=== PATIENT | male | born 2000 | race American Indian/Alaskan Native ===

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

== ENCOUNTER 2023-07-27 08:04 | Day surgery (SDC) | payer OTHER ==
--- NOTE | 2023-07-26 13:59 | NUR ---
PHON CALL TO PT'S MOTHER LEFT MESSAGE X 2 TO THIS NUMBER [phone]
[~2023-07-27] VITALS: Ht 175.3 cm; Wt 113.6 kg
[~2023-07-27 08:04] MED LIST: IBLOOD GLUCOSE TEST STRIP 1 EA TEST VI PRN; LACTATED RINGER'S 1,000 ML IV SCH; LIDOCAINE HCL 1% 5 ML SDV INJ ONE; MAPAP325 MG PO
[2023-07-27 08:23] VITALS: BP 121/59
[2023-07-27] MEDS ORDERED: ALLERGY REL1 MG/1 ML PO (08:28)
[2023-07-27] MEDS ORDERED: LIDOCAINE HCL 2% 5 ML SDV ONE (09:59)
[2023-07-27] MEDS ORDERED: propofoL 200 MG/20 ML VIAL ONE (09:59)
[2023-07-27] MEDS ORDERED: fentaNYL citrate 100 MCG/2 ML VIAL ONE (09:59)
[2023-07-27] MEDS ORDERED: DEXAMETHASONE SOD PHOS 4 MG/ML VIAL ONE (09:59)
[2023-07-27] MEDS ORDERED: ondansetron HCL 4 MG/2 ML VIAL ONE (09:59)
[2023-07-27] MEDS ORDERED: IBLOOD GLUCOSE TEST STRIP 1 EA TEST VI PRN (10:30)
[2023-07-27] MEDS ORDERED: droPERidol 5 MG/2 ML VIAL IV PRN (10:30)
[2023-07-27] MEDS ORDERED: ondansetron HCL 4 MG/2 ML VIAL IV PRN (10:30)
[2023-07-27] MEDS ORDERED: fentaNYL citrate 50 MCG/ML SDV IV PRN (10:30)
[2023-07-27] MEDS ORDERED: NALOXONE HCL 0.4 MG SYR IV PRN (10:30)
[2023-07-27] MEDS ORDERED: PROCHLORPERAZINE EDISYLATE 10 MG/2 ML VIAL IV PRN (10:30)
--- NOTE | 2023-07-27 11:07 | NUR ---
07/27/23 1107 Jacqueline Wilson 1100: PATIENT ARRIVED IN PACU AWAKE AND TEARFUL. HE IS ASKING FOR WATER. PATIENT IS REPOSITIONED IN BED AND HOB IS ELEVATED TO 90. SIPS OF WATER TAKEN AND HE TOLERATES THAT WELL. PATIENT RESTS QUIETLY WITH HIS EYES CLOSED WHEN UNSTIMULATED. PATIENT NOT ON OXYGEN ON ARRIVAL TO PACU AND HIS OXYGEN SATURATION IS 88% ON RA. OXYGEN IS PLACED ON 2L VIA NC.
[2023-07-27 11:35] VITALS: BP 108/53
--- NOTE | 2023-07-27 11:37 | NUR ---
ICED WATER AND CALL LIGHT GIVEN. MOTHER AT PATIENT'S BEDSIDE. PATIENT IS DRINKING WATER AND TOLERATING THAT WELL.
--- NOTE | 2023-07-27 12:10 | NUR ---
CALL LIGHT ANSWERED. PT REPORTS NEED TO VOID. PT ASSISTED TO STANDING POSITION. PT AMBULATED TO RESTROOM DOWN CASTILLO WITH RN SUPERVISION. PT WAS ABLE O VOID 375ML OF CLR, YELLOW URINE. PT AMBULATED BACK TO ROOM WITH NURSE SUPERVISION. PT SITTING ON EOB WITH MOTHER AND PERSONAL BELONGINGS AT SIDE. MOTHER HELPING PT DRESS.
[2023-07-27] MEDS ORDERED: dexmedeTOMIDine HCl 200 MCG/2 ML VIAL ONE (12:17)
[2023-07-27 12:40] VITALS: BP 122/68
--- NOTE | 2023-07-27 12:40 | NUR ---
INTO PTS ROOM FOR ROUTINE REASSESSMENT AND DISCHARGE TEACHING. VSS. PT DENIES PAIN OR NAUSEA. PT HAS TOLERATED PO FOOD/FLUIDS W/O ISSUES. SMALL AMT OF BLEEDING NOTED AT GUM LINES WHEN OBSERVED. IV REMOVED FROM PT RAC. TIP OBSERVED TO BE INTACT. PRESSURE DRSG APPLIED. DISCHARGE INSTRUCTIONS GONE OVER WITH PT AND HIS MOTHER. PT'S MOTHER VERBALIZED UNDERSTANDING. PTS MOTHER LEFT TO PULL CAR AROUND TO FRONT OF HOSPITAL.
--- NOTE | 2023-07-27 12:55 | NUR ---
PT TRASNFERRED OFF UNIT VIA WC TO PASSENGER SIDE OF [employer] TRUCK. ALL PERSONAL BELONGINGS TAKEN WITH PT.
== END 2023-07-27 12:55 | disposition home or self-care (01) ==
LOC: DS 08:04 → OPS 08:04 → DS 09:30 → OPS 09:30 → DS 11:15 → OPS 12:55
PROVIDERS: ATTEND Dentist General Practice
PROC: 0CDWXZ2 Extraction of Upper Tooth, All, External Approach (ICD-10-PCS; 2023-07-27)
PROC: 0CDXXZ2 Extraction of Lower Tooth, All, External Approach (ICD-10-PCS; principal; 2023-07-27 11:15)
DX: K02.9 Dental caries, unspecified (principal); Q90.9 Down syndrome, unspecified; E03.9 Hypothyroidism, unspecified
CPT/HCPCS: 00170; J1100; J2001; J2405; J2704; J3010; J7121

== ENCOUNTER 2024-09-17 20:25 | Emergency (ER) | payer OTHER ==
[~2024-09-17] VITALS: Ht 175.3 cm; Wt 124.0 kg
[~2024-09-17 20:25] MED LIST changes: +ALLERGY REL1 MG/1 ML PO; +CEPHALEXIN500 M1 PO; -IBLOOD GLUCOSE TEST STRIP 1 EA TEST VI PRN; -LACTATED RINGER'S 1,000 ML IV SCH; -LIDOCAINE HCL 1% 5 ML SDV INJ ONE
--- OUTSIDE RECORDS SUMMARY | 2024-09-17 20:32 | XMS ---
PreManage Notification: JUN AUGUSTINE Security Transformation Specialist Events No recent Security Events currently on file CRITERIA MET - Group Notification CARE PROVIDERS -, [facility] Dentist: Chicken Boner [facility] PHONE: [phone] -[place]- Dentist: Chicken Boner [facility] PHONE: [phone] [facility] \F\ <UNAVAIL> PHONE: [phone] Maria Elena has no Care Guidelines for this patient. E.D. VISIT COUNT (12 MO.) 2 LETTY [facility] TOTAL 2 NOTE: Visits indicate total known visits. ED/UCC VISIT TRACKING (12 MO.) 09/17/2024 20:25 LETTY [facility] OR TYPE: Emergency COMPLAINT: - SKIN ISSUE 07/20/2024 16:25 LETTY [facility] OR TYPE: Emergency COMPLAINT: - ABDOMINAL PAIN DIAGNOSES: - Other specified diseases of anus and rectum - Unspecified abdominal pain INPATIENT VISIT TRACKING (12 MO.) No inpatient visits to display in this time frame [email or web address]
[2024-09-17] MEDS ORDERED: TRIMETHOPRIM/SULFAMETHOXAZOLE 40MG-200MG/5ML PO ONE (23:15)
[2024-09-17] MEDS ORDERED: BACTRIM DS TAB1 EACH PO (23:22)
[2024-09-17 23:40] VITALS: BP 141/98
[2024-09-17] MEDS ORDERED: TRIMETHOPRIM/SULFAMETHOXAZOLE 1 EA TAB PO ONE (23:45)
== END 2024-09-17 23:41 | disposition home or self-care (01) ==
LOC: ED 20:25
DX: J34.0 Abscess, furuncle and carbuncle of nose (principal); Z79.2 Long term (current) use of antibiotics
CPT/HCPCS: 99283; A9270